=== PATIENT | male | born 1975 | race African-American/Black ===

== ENCOUNTER → 2016-12-04 | Outpatient (CLI) | payer BC ==
--- NOTE | 2016-12-04 15:12 | DIAGNOSTIC IMAGING REPORT ---
L FOOT MIN 3 VIEWS ROUTINE CLINICAL HISTORY: Left foot pain. Trauma. COMPARISON: None. 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 No fractures or subluxations are visualized. IMPRESSION: No fractures identified. Electronically signed by: Jaylan Hobbs M.D. 12/04/2016 3:11 PM Dictated Date/Time: 12/04/2016 3:10 PM
--- NOTE | 2016-12-04 15:27 | DIAGNOSTIC IMAGING REPORT ---
L ANKLE MIN 3 VIEWS ROUTINE HISTORY: 40 years-old Male PAIN IN LEFT FOOT acute left foot and ankle pain status post injury COMPARISON: Left foot radiographs of same day TECHNIQUE: 3 views of the left ankle FINDINGS: There is mild soft tissue swelling about the ankle with suspected small joint effusion. Pes planus deformity with os trigonum. No acute fracture, dislocation or osteochondral defect. No opaque foreign body. No significant degenerative changes. IMPRESSION: Mild ankle soft tissue swelling without acute fracture or dislocation. The above report was generated using voice recognition software. It may contain grammatical, syntax or spelling errors. Electronically signed by: Foster Pascal M.D. 12/04/2016 3:26 PM Dictated Date/Time: 12/04/2016 3:25 PM
== END | disposition home or self-care (01) ==
LOC: C.RAD 14:44
PROVIDERS: ATTEND Nurse Practitioner
DX: M79.672 Pain in left foot (principal)

== ENCOUNTER → 2017-09-06 | Outpatient (CLI) | payer OTHER ==
--- NOTE | 2017-09-06 11:16 | DIAGNOSTIC IMAGING REPORT ---
R KNEE 4 OR MORE VIEWS CLINICAL HISTORY: PAIN IN RIGHT KNEE COMPARISON: None. DISCUSSION: Evidence for prior anterior cruciate ligament repair. Minimal degenerative change all major joint compartments. Minimal reactive osteophytic change. No acute bony abnormality. There is no evidence for soft tissue swelling. IMPRESSION: Minimal degenerative change. Postoperative changes as noted. No acute process. The above report was generated using voice recognition software. It may contain grammatical, syntax or spelling errors. Electronically signed by: David Cates M.D. 09/06/2017 11:15 AM Dictated Date/Time: 09/06/2017 11:13 AM
== END | disposition home or self-care (01) ==
LOC: C.RAD 10:43
PROVIDERS: ATTEND Family Medicine
DX: M25.561 Pain in right knee (principal)